=== PATIENT | male | born 1975 | race Caucasian/White ===

== ENCOUNTER 2017-10-31 14:42 | Emergency (ER) | payer MEDICAID, OTHER ==
[2017-10-31] MEDS: ALBUTEROL 0.083% (NEB) 2.5 MG/3 ML AMP HHN (18:15)
[2017-10-31] MEDS: HYDROCODONE/APAP (5/325) TAB PO (18:42)
== END 2017-10-31 19:06 | disposition home or self-care (01) ==
LOC: FTE 14:42
DX: R07.89 Other chest pain (principal); R05 Cough; Z87.891 Personal history of nicotine dependence
CPT/HCPCS: 71046; 93005; 94664; 99284-25